=== PATIENT | male | born 1985 | race Caucasian/White ===

== ENCOUNTER 2016-07-23 20:32 | Emergency (ER) | payer OTHER ==
[~2016-07-23] VITALS: Ht 185.4 cm; Wt 110.0 kg
[2016-07-23 20:48] VITALS: TEMP 36.9; Ht 185.4 cm; Wt 110.0 kg
[2016-07-23] MEDS ORDERED: TAMS0.4C38 PO (21:18)
[2016-07-23] MEDS ORDERED: ONDANSETRON INJ 2 MG/ML 2 ML VIAL ONE (21:24)
[2016-07-23 21:35] LABS: BASO % 0.1 %; BASO ABS # 0.02 K/uL (0-0.2); COMPLETE YES; EOS % 0.3 %; HEMATOCRIT 41.8 % (42-52); IG% 0.3 %; LYMPH % 7.7 %; LYMPH ABS # 1.16 K/uL (1.2-3.4); MEAN CELL VOLUME 84.8 fL (80-100); MEAN CORPUSCULAR HEMOGLOBIN 30.4 pg (25-34); MEAN CORPUSCULAR HGB CONC 35.9 g/dl (32-36); MONO % 4.5 %; NEUT % 87.1 %; PLATELET COUNT 260 K/uL (130-400); RED BLOOD COUNT 4.93 M/uL (4.7-6.1); WHITE BLOOD COUNT 15.02 K/uL (4.8-10.8)
[2016-07-23] MEDS ORDERED: SODIUM CHLORIDE 0.9% 1000ML 1,000 ML IV STA (21:38)
[2016-07-23] MEDS ORDERED: KETOROLAC TROMETHAMINE 30 MG/ML VIAL IV STA (21:49)
[2016-07-23 21:54] LABS: ALT/SGPT 38 U/L (12-78); BLOOD UREA NITROGEN 13 mg/dl (7-18); BUN/CREATININE RATIO 12.2 (10-20); CALCIUM 9.2 mg/dl (8.5-10.1); CARBON DIOXIDE 27 mmol/L (21-32); CHLORIDE 103 mmol/L (98-107); GLUCOSE 103 mg/dl (70-99); POTASSIUM 3.7 mmol/L (3.5-5.1); SODIUM 139 mmol/L (136-145)
[2016-07-23 21:57] LABS: ALKALINE PHOSPHATASE 94 U/L (45-117); AST/SGOT 19 U/L (15-37)
[2016-07-23 21:59] LABS: URINE APPEARANCE CLOUDY (CLEAR); URINE BILIRUBIN NEG (NEG); URINE COLOR DK YELLOW; URINE NITRITE NEG (NEG); URINE SPECIFIC GRAVITY 1.025 (1.000-1.030); UROBILINOGEN NEG (NEG); ZZUR CULT IF INDIC CLEAN CATCH NO
[2016-07-23] MEDS ORDERED: HYDROmorphone INJ 1 MG/ML SYR IV PRN (22:00)
[2016-07-23 22:01] LABS: MANUAL MICROSCOPIC REQUIRED? NO; REVIEW REQ? NO
--- NOTE | 2016-07-23 22:19 | DIAGNOSTIC IMAGING REPORT ---
ABDOMEN AND PELVIS CT WITHOUT CONTRAST CT DOSE: 1622.39 mGy.cm HISTORY: Flank pain right flank TECHNIQUE: Multiaxial CT images of the abdomen and pelvis were performed without the use of intravenous and oral contrast according to the standard department stone protocol. COMPARISON STUDY: None. FINDINGS: Lung bases are clear. Liver spleen and pancreas are unremarkable. Left kidney is negative for calcification or hydronephrosis. Right kidney shows moderate hydroureteronephrosis. There is a 2 mm nonobstructing calcification at its upper pole. There is a ureter is distended to a 4 mm obstructing calculus of the distal right ureter. This is several centimeters proximal to the right ureterovesical junction. Bladder is midline. There are no contained calcifications. Bowel pattern is nonobstructive. IMPRESSION: 1. 4 mm obstructing calculus distal right ureter. 2. Moderate right hydroureteronephrosis. Electronically signed by: Ryan Messer M.D. 07/23/2016 10:18 PM Dictated Date/Time: 07/23/2016 10:17 PM
[2016-07-24] MEDS ORDERED: OXYC1TAB3 PO (00:26)
[2016-07-24] MEDS ORDERED: ONDA4TAB10 SL (00:28)
[2016-07-24] MEDS ORDERED: ONDANSETRON HOME PACK 4MG OD TAB PO ONE (00:30)
[2016-07-24] MEDS ORDERED: OXYCODONE IR HOME PACK PO ONE (00:30)
[2016-07-24 00:43] VITALS: BP 139/81; PULSE 89; O2SAT 99
--- NOTE | 2016-07-24 02:30 | EMERGENCY ROOM VISIT NOTE ---
History Report prepared by Lucinda: Kiera Mas Under the Supervision of: Dr. Hernandez Webb M.D. First contact with patient: 20:54 Chief Complaint: Right flank pain Stated Complaint: VOMITING,RT BACK PAIN/PRESSURE TO VOID,LOW TEMP History of Present Illness The patient is a 31 year old male who presents to the Emergency Room with complaints of worsening right sided flank pain since this afternoon. His pain started early this afternoon and has been worsening throughout the day. He has also been experiencing nausea and intermittent vomiting. He reports a sensation of pressure on his bladder and right groin soreness. He has had some diarrhea. The patient rates his pain as a 6/10 in severity. He notes his urine to be darker than usual. He took Flomax [employer]. The patient has a history of kidney stones with his most recent stone occurring in January 2016. He states that this feels similar to previous kidney stones. Pt denies LOC, headache, fevers, chills, diaphoresis, visual changes, neck pain, chest pain, breathing difficulties, melena, hematochezia, numbness, weakness, lymphadenopathy, rash, or other complaints. Source of History: patient Onset: this afternoon Position: other (right flank) Symptom Intensity: 6/10 Quality: pressure Timing: worsening Associated Symptoms: + diarrhea, + nausea, + urinary symptoms (darker urine) , + vomiting Review of Systems See HPI for pertinent positives and negatives. A total of ten systems were reviewed and were otherwise negative. Past Medical & Surgical Medical Problems: (1) Kidney stones Family History Hypertension Kidney disease Kidney stones Lung disease Social History Smoking Status: Current Every Day Smoker Marital Status: Housing Status: lives with significant other Current/Historical Medications Scheduled Ondasetron Odt (Zofran Odt), 4 MG SL Q6H Scheduled PRN Oxycodone Ir (Roxicodone Ir), 1-2 TAB PO Q4H PRN for Pain Tamsulosin Hcl (Flomax), 0.4 MG PO DAILY PRN for Bladder pain Allergies Coded Allergies: No Known Allergies (Unverified , 07/23/16) Physical Exam Vital Signs Date Time Temp Pulse Resp B/P Pulse Ox O2 Delivery O2 Flow Rate FiO2 07/24/16 00:43 89 18 139/81 99 07/23/16 20:48 36.9 165 20 155/85 94 Room Air Physical Exam GENERAL: Awake, alert, uncomfortable-appearing, in no distress HENT: Normocephalic, atraumatic. Oropharynx unremarkable. EYES: Normal conjunctiva. Sclera non-icteric. NECK: Supple. No nuchal rigidity. FROM. No JVD. RESPIRATORY: Clear to auscultation. CARDIAC: Regular rate, normal rhythm. Extremities warm and well perfused. Pulses equal. ABDOMEN: Soft, non-distended. Suprapubic tenderness to palpation. No rebound or guarding. No masses. RECTAL: Deferred. MUSCULOSKELETAL: Chest examination reveals no tenderness. The back is symmetrical on inspection without obvious abnormality. There is right CVA tenderness to palpation. No joint edema. LOWER EXTREMITIES: Calves are equal size bilaterally and non-tender. No edema. No discoloration. NEURO: Normal sensorium. No sensory or motor deficits noted. SKIN: No rash or jaundice noted. Medical Decision & Procedures ER Provider Diagnostic Interpretation: Radiology results as stated below per my review and radiologist interpretation: ABDOMEN AND PELVIS CT WITHOUT CONTRAST CT DOSE: 1622.39 mGy.cm HISTORY: Flank pain right flank TECHNIQUE: Multiaxial CT images of the abdomen and pelvis were performed without the use of intravenous and oral contrast according to the standard department stone protocol. COMPARISON STUDY: None. FINDINGS: Lung bases are clear. Liver spleen and pancreas are unremarkable. Left kidney is negative for calcification or hydronephrosis. Right kidney shows moderate hydroureteronephrosis. There is a 2 mm nonobstructing calcification at its upper pole. There is a ureter is distended to a 4 mm obstructing calculus of the distal right ureter. This is several centimeters proximal to the right ureterovesical junction. Bladder is midline. There are no contained calcifications. Bowel pattern is nonobstructive. IMPRESSION: 1. 4 mm obstructing calculus distal right ureter. 2. Moderate right hydroureteronephrosis. Electronically signed by: Ryan Messer M.D. 07/23/2016 10:18 PM Dictated Date/Time: 07/23/2016 10:17 PM Laboratory Results 07/23/16 21:22 Red Blood Count 4.93, Mean Corpuscular Volume 84.8, Mean Corpuscular Hemoglobin 30.4, Mean Corpuscular Hemoglobin Concent 35.9, Mean Platelet Volume 10.0, Neutrophils (%) (Auto) 87.1, Lymphocytes (%) (Auto) 7.7, Monocytes (%) (Auto) 4.5, Eosinophils (%) (Auto) 0.3, Basophils (%) (Auto) 0.1, Neutrophils # (Auto) 13.08, Lymphocytes # (Auto) 1.16, Monocytes # (Auto) 0.67, Eosinophils # (Auto) 0.04, Basophils # (Auto) 0.02 07/23/16 21:22 Test 07/23/16 21:22 07/23/16 21:41 White Blood Count 15.02 K/uL (4.8-10.8) Red Blood Count 4.93 M/uL (4.7-6.1) Hemoglobin 15.0 g/dL (14.0-18.0) Hematocrit 41.8 % (42-52) Mean Corpuscular Volume 84.8 fL (80-100) Mean Corpuscular Hemoglobin 30.4 pg (25-34) Mean Corpuscular Hemoglobin Concent 35.9 g/dl (32-36) Platelet Count 260 K/uL (130-400) Mean Platelet Volume 10.0 fL (7.4-10.4) Neutrophils (%) (Auto) 87.1 % Lymphocytes (%) (Auto) 7.7 % Monocytes (%) (Auto) 4.5 % Eosinophils (%) (Auto) 0.3 % Basophils (%) (Auto) 0.1 % Neutrophils # (Auto) 13.08 K/uL (1.4-6.5) Lymphocytes # (Auto) 1.16 K/uL (1.2-3.4) Monocytes # (Auto) 0.67 K/uL (0.11-0.59) Eosinophils # (Auto) 0.04 K/uL (0-0.5) Basophils # (Auto) 0.02 K/uL (0-0.2) RDW Standard Deviation 40.0 fL (36.4-46.3) RDW Coefficient of Variation 12.9 % (11.5-14.5) Immature Granulocyte % (Auto) 0.3 % Immature Granulocyte # (Auto) 0.05 K/uL (0.00-0.02) Anion Gap 9.0 mmol/L (3-11) Est Creatinine Clear Calc Drug Dose 127.7 ml/min Estimated GFR () 103.9 Estimated GFR (Non- 89.6 BUN/Creatinine Ratio 12.2 (10-20) Calcium Level 9.2 mg/dl (8.5-10.1) Total Bilirubin 0.4 mg/dl (0.2-1) Direct Bilirubin < 0.1 mg/dl (0-0.2) Aspartate Amino Transf (AST/SGOT) 19 U/L (15-37) Alanine Aminotransferase (ALT/SGPT) 38 U/L (12-78) Alkaline Phosphatase 94 U/L (45-117) Total Protein 7.6 gm/dl (6.4-8.2) Albumin 4.2 gm/dl (3.4-5.0) Lipase 185 U/L (73-393) Urine Color DK YELLOW Urine Appearance CLOUDY (CLEAR) Urine pH 5.0 (4.5-7.5) Urine Specific [place] 1.025 (1.000-1.030) Urine Protein 2+ (NEG) Urine Glucose (UA) NEG (NEG) Urine Ketones NEG (NEG) Urine Occult Blood 3+ (NEG) Urine Nitrite NEG (NEG) Urine Bilirubin NEG (NEG) Urine Urobilinogen NEG (NEG) Urine Leukocyte Esterase SMALL (NEG) Urine WBC (Auto) 1-5 /hpf (0-5) Urine RBC (Auto) >30 /hpf (0-4) Urine Hyaline Casts (Auto) 1-5 /lpf (0-5) Urine Epithelial Cells (Auto) 5-10 /lpf (0-5) Urine Bacteria (Auto) NEG (NEG) Laboratory results reviewed by me Medications Administered Medications (Trade) Dose Ordered Sig/Pavel Route Start Time Stop Time Status Last Admin Dose Admin Ondansetron HCl 4 mg 4 mg STK-MED ONCE .ROUTE 07/23/16 21:24 07/23/16 21:28 DC 07/23/16 21:24 4 MG Sodium Chloride (Nss 1000ml) 1,000 ml @ 999 mls/hr Q1H1M STAT IV 07/23/16 21:38 07/23/16 22:38 DC 07/23/16 21:38 999 MLS/HR Hydromorphone HCl (Dilaudid Inj) 1 mg Q15M PRN IV 07/23/16 22:00 07/24/16 01:00 DC 07/23/16 22:20 1 MG Oxycodone HCl (Roxicodone Immediate Rel 5MG Home Pack) 1 homepack UD ONCE PO 07/24/16 00:30 07/24/16 00:31 DC 07/24/16 00:36 1 HOMEPACK Ondansetron HCl (ZOFRAN ODT 4MG Home Pack) 1 homepack UD ONCE PO 07/24/16 00:30 07/24/16 00:31 DC 07/24/16 00:36 1 HOMEPACK ED Course 2053: The patient was evaluated in room B4B. A complete history and physical exam was performed. 2123: Zofran mg IV 2137: NSS 1000 ml @ 999 mls/hr IV 2148: Toradol 10 mg IV 2199: Dilaudid 1 mg IV - PRN Medical Decision Prior records/ancillary studies reviewed. Triage Nursing notes reviewed and agree them. Additional history obtained from the patient's significant other The patient's history was concerning for flank and abdominal pain. Differential diagnosis: Etiologies such as renal colic, appendicitis, diverticulitis, mesenteric ischemia, aortic pathology, infections, inflammatory bowel disease, PUD, biliary pathology, UTI, as well as others were entertained. Physical examination findings: As above. ER treatment provided: IV Zofran IV Dilaudid IV Toradol IV saline On reassessment the patient felt better. Diagnostic interpretation by me: The labs revealed a mild leukocytosis on CBC. Chemistry panel unremarkable. Urinalysis revealed hematuria. There was no sign of UTI. Imaging studies: CT of the abdomen and pelvis as above. It appears that the patient has isolated renal colic from a right sided stone. By the evaluation outlined above emergent etiologies such as appendicitis, diverticulitis, mesenteric ischemia, aortic pathology, infections, inflammatory bowel disease, PUD, biliary pathology, UTI, as well as others were deemed relatively unlikely. The patient was informed about the findings as listed above. All questions were answered and he was pleased with the treatment. Return instructions were outlined and the patient was discharged in stable condition. Outpatient prescription management: Oxy IR 5mg 1-2 po Q4 hrs prn Zofran Referral: The pt was referred to [facility] for follow up care regarding their stone. The chart was completed utilizing [employer] voice recognition software. Grammatical errors, random word insertions, pronoun errors, and incomplete sentences are an occasional consequence of this system due to software limitations, ambient noise, and hardware issues. Any formal questions or concerns about the content, text, or information contained within the body of this dictation should be directly addressed to the physician for clarification. Impression Primary Impression: Ureterolithiasis Scribe Attestation The scribe's documentation has been prepared under my direction and personally reviewed by me in its entirety. I confirm that the note above accurately reflects all work, treatment, procedures, and medical decision making performed by me. Departure Information Dispostion Home / Self-Care Prescriptions Ondasetron Odt (ZOFRAN ODT) 4 Mg Tab 4 MG SL Q6H for Nausea, #6 TAB Prov: Hernandez Webb MD 07/24/16 Oxycodone Ir (Roxicodone Ir) 5 Mg Tab 1-2 TAB PO Q4H Y for Pain, #15 TAB Prov: Hernandez Webb MD 07/24/16 Referrals No Doctor, Assigned (PCP) Patient Instructions My [facility]
== END 2016-07-24 00:44 | disposition home or self-care (01) ==
LOC: C.EDB 20:33
DX: N20.1 Calculus of ureter (principal); Z87.442 Personal history of urinary calculi; I10 Essential (primary) hypertension; F17.210 Nicotine dependence, cigarettes, uncomplicated